=== PATIENT | female | born 1985 | race Caucasian/White ===

== ENCOUNTER → 2024-12-10 08:43 | Outpatient (REF) | payer OTHER, SELFPAY | LOC: WDC 08:43 | PROVIDERS: ATTENDING PHYSICIAN Student in an Organized Health Care Education/Training Program | DX: Z12.31 Encounter for screening mammogram for malignant neoplasm of breast (principal) | CPT/HCPCS: 77063; 77067 ==

== ENCOUNTER → 2024-12-26 10:13 | Outpatient (REF) | payer OTHER, SELFPAY | LOC: RAD 10:13 | PROVIDERS: ATTENDING PHYSICIAN Student in an Organized Health Care Education/Training Program; FAMILY PHYSICIAN Physician Assistant Medical | DX: N93.9 Abnormal uterine and vaginal bleeding, unspecified (principal) | CPT/HCPCS: 76830; 76856 ==

== ENCOUNTER → 2025-02-23 07:15 | Outpatient (REF) | payer OTHER, SELFPAY | LOC: RAD 07:15 | PROVIDERS: ATTENDING PHYSICIAN Physician Assistant Medical | DX: R10.12 Left upper quadrant pain (principal) | CPT/HCPCS: 76700 ==

== ENCOUNTER 2025-03-07 06:31 | Day surgery (SDC) | payer OTHER, SELFPAY ==
[2025-03-01 08:49] LABS: % Eosinophils 3.2 % (0-6); % Immature Granulocytes 0.4 % (0-0.5); % Lymphocytes 25.9 % (20.5-51.1); % Monocytes 4.6 % (1.7-9.3); % Neutrophils 64.9 % (42.2-75.2); Absolute Basophils 0.1 10^3/uL (0-0.2); Absolute Eosinophils 0.3 10^3/uL (0-0.7); Absolute Lymphocytes 2.1 10^3/uL (1.2-3.4); Absolute Monocytes 0.4 10^3/uL (0.1-0.6); Absolute Neutrophils 5.2 10^3/uL (1.4-6.5); Hematocrit 34.6 % (37.0-47.0); Hemoglobin 11.4 g/dL (12.0-16.0); Mean Corp Hgb Conc. 32.9 g/dL (33.0-37.0); Mean Corpuscular Hgb 27.4 pg (27.0-31.0); Mean Corpuscular Volume 83.2 fL (81.0-99.0); Mean Platelet Volume 8.8 fL (7.4-10.4); Nucleated Red Blood Cells % 0 %; Platelet Count 388 10^3/uL (130-400); Red Blood Cell Count 4.16 10^6/uL (4.20-5.40); Red Cell Dist. Width 13.4 % (11.5-14.5); White Blood Cell Count 8.1 10^3/uL (4.8-10.8)
[2025-03-01 13:02] LABS: Beta HCG Quantitative < 2.39 mIU/ml
[2025-03-01 13:29] VITALS: BMI 30.8
--- NOTE | 2025-03-06 12:29 | HPS.HSE ---
Family Physician
-
Family Physician: Margareth Riggins PA-C
Chief Complaint
-
hysteroscopy D&C
History of Present Illness
Patient is a 39yo who presents for preop for hysteroscopy D&C with Myosure. Patient has been having heavy periods and gets 2 periods per month. Pelvic US was completed and showed uterus 8.2x3.8x5.1cm. The endometrial thickness was 14mm. The
left ovary had a 2.9x2.6x2.2cm cyst that was likely hemorrhagic. There was a hypoechoic nodule adjacent to the endometrium measuring 1.0x0.7x0.7cm and a nodule in the lower uterine segment measuring 1.6x1.6x1.7cm. With a thickened endometrium,
abnormal uterine bleeding, and submucosal fibroids, hysteroscopy D&C with myosure was recommended.
PMHx: denies
Meds: denies
Surghx: appendectomy, dx laparoscopy for ectopic , bartholin gland
NKDA
Socialhx: occ etoh use, denies tobacco or illicit drug use
Famhx: father w/ pancreatic cancer, paternal aunts w/ breast cancer, paternal uncle w/ prostate
OBHx: , SVDx2, ectopic
Gynhx: remote hx of abnormal Pap (cryo for HPV)
Medical History
Past Medical History
Past Medical History: Reports None
Past Surgical History: Reports Appendectomy and Gynocological
Social History
Tobacco: Non-smoker
Alcohol: Occasional
Drug: None
Family History
Family History: Cancer
Allergies / Home Medications
Allergies reflects when Allergies were last updated in [facility].
Home Medications with original date entered in [facility]
Allergy/Medication List:
All: shellfish
Meds: denies
Review of Systems
-
A 12 point ROS was completed and negative except as noted: Yes
Physical Exam
Physical Exam
General: Well Developed and Well Nourished
HEENT: NormoCephalic
Respiratory: Non Labored Respirations
Cardiac: Regular Rhythm
Skin: Warm and Dry
Neuro: Awake and Alert
Psych: Calm
Laboratory Results
-
03/01/25 08:20
Impression/Plan
-
IMPRESSION:
Patient is a 39yo who presents for hysteroscopy D&C with Myosure for abnormal uterine bleeding and submucosal fibroid
PLAN:
- Risks, benefits and alternatives to the procedure reviewing including bleeding, infection, damage to surrounding structures, uterine perforation and need for future surgeries. Also aware that only submucosal fibroids will be able to be removed
during hysteroscopy. She was consented for a blood transfusion in case of emergency. Consents signed
[2025-03-07] VITALS (9 sets, daily range): BP systolic 94–114; BP diastolic 58–68; BMI 30.8
[2025-03-07] MEDS: NORMOSOL-R/PLASMALYTE-A 1000 IV (09:36)
--- NOTE | 2025-03-07 13:33 | OR.RPT ---
Operative Report
Operative Report
Procedure date: 03/07/2025
Preop diagnosis
- Abnormal uterine bleeding
- Submucosal fibroid
Postop diagnosis
- Abnormal uterine bleeding
- Cervical stenosis
Procedure
- Hysteroscopy, dilation and curettage
Surgeon: Nghia
Anesthesia: MAC, Dr. Hayes
EBL 10cc
Complications: none
Findings
- Normal appearing external genitalia
- Cervix normal appearing
- Bimanual exam with normal sized anteverted uterus, no adnexal masses
- Difficulty dilating cervix secondary to cervical stenosis. Unable to pass hysteroscope past internal cervical os. Endometrial curettings were able to be obtained. There was a small polyp vs tissue in the endocervical canal that was removed with
the MyoSure resecting device
Pathology: endometrial curettings
Indication:
Patient is a 39yo presents for hysteroscopy D&C with MyoSure for abnormal uterine bleeding with heavy periods. Patient has been having heavy periods and also been getting two periods per month. She had a pelvic ultrasound that showed the
uterus was 8.2x3.8x5.1cm and the endometrial thickness was 14mm. There were also possible small submucosal fibroids. Hysteroscopy D&C and with Myosure was recommended. Risks, benefits and alternatives reviewed and all questions answered. Consents
were previously signed in the office.
Procedure:
Patient was taken to the operating room and placed under general anesthesia. She was placed in the dorsal lithotomy position with Twin type stirrups. She was prepped and draped in the normal sterile fashion. Bimanual exam revealed the
aforementioned findings. The bladder was drained with a straight catheter yielding 475cc of clear urine. A Ayers retractor was placed in the anterior portion of the vagina and in the posterior aspect of the vagina revealing good visualization the
cervix. The anterior lip of the cervix was grasped with a Tenaculum. Cervical dilators were used to sequentially dilate the cervix to accommodate the hysteroscope. There was difficulty dilating the cervix due to cervical stenosis. The cervix was
able to dilate to 19 [place]. The hysteroscope was advanced under direct visualization. There was small polyp vs piece of tissue in the endocervical canal and the MyoSure lite resecting device was used to remove. The hysteroscope was not able to be
advanced through the internal cervical os. Multiple attempts with different dilators were made and the internal os was not able to be dilated further. The hysteroscope was also attempted to pass through in the internal cervical os but was not able
to pass into the uterine cavity. Hysteroscope was removed. A size 0 curette was introduced through the cervix. The uterus was curetted in a clockwise fashion until uterine cry was felt in all quadrants. Endometrial curettings were sent to pathology.
The tenaculum was removed from the cervix and oozing noted from the tenaculum site. Pressure and silver nitrate were used to achieve hemostasis. All instruments were removed from the vagina.
The patient tolerated the procedure well. All sponge and instrument counts were correct x2. She was taken to PACU in stable
== END 2025-03-07 14:00 | disposition home or self-care (01) ==
LOC: SDS 06:31
PROVIDERS: ATTENDING PHYSICIAN Student in an Organized Health Care Education/Training Program; FAMILY PHYSICIAN Physician Assistant Medical
DX: D25.0 Submucous leiomyoma of uterus (principal); N88.2 Stricture and stenosis of cervix uteri; N92.0 Excessive and frequent menstruation with regular cycle
CPT/HCPCS: 58558; 88305; 84702; 85025; 86850; 86900; 86901